=== PATIENT | male | born 1970 | race Caucasian/White ===

== ENCOUNTER 2017-10-16 23:34 | Emergency (ER) | payer BC ==
[~2017-10-16] VITALS: Ht 177.8 cm; Wt 74.8 kg
[2017-10-16 23:54] VITALS: BP 144/81
[2017-10-17] MEDS ORDERED: HYDROCODON-ACE1 EA15 ORAL (00:44)
[2017-10-17] MEDS ORDERED: BACTRIM DS TAB1 EAC1 ORAL (00:44)
[2017-10-17] MEDS ORDERED: IBUPROFEN600 MG ORAL (00:44)
--- NOTE | 2017-10-17 00:44 | Emergency Room Report ---
History of Present Illness General Chief Complaint: Skin Rash/Abscess Source: Patient Present Illness HPI Is a 47-year-old male with no past mental history. He presents with chief complaint of an abscess to his right buttock. Been there for about 3-4 days. No nausea no vomiting. No fever or chills. No drainage. He has similar symptom in the past but usually heal on its own. No other complaint. Allergies: Coded Allergies: No Known Allergies (Unverified , 10/17/17) Patient History Past Medical History: see triage record, old chart reviewed Past Surgical History: other Pertinent Family History: none Social History: Denies: smoking Immunizations: other Reviewed Nursing Documentation: PMH: Agreed; PSxH: Agreed Nursing Documentation-PMH Past Medical History: No Stated History Review of Systems Eye: Denies: eye pain, blurred vision ENT: Denies: ear pain, nose congestion, throat swelling Respiratory: Denies: cough, shortness of breath Cardiovascular: Denies: chest pain, palpitations Gastrointestinal: Denies: abdominal pain, diarrhea, nausea, vomiting Musculoskeletal: Denies: back pain, joint pain Skin: Denies: rash Neurological: Denies: headache, numbness Endocrine: Denies: increased thirst, increased urine Hematologic/Lymphatic: Denies: easy bruising All Other Systems: negative except mentioned in HPI Physical Exam Vital Signs Date Time Temp Pulse Resp B/P (MAP) Pulse Ox O2 Delivery O2 Flow Rate FiO2 10/16/17 23:41 97.8 89 16 144/81 98 Room Air 97.9 vitals normal Sp02 EP Interpretation: reviewed, normal General Appearance: well appearing, no apparent distress, alert Head: normocephalic, atraumatic Eyes: bilateral eye PERRL, bilateral eye EOMI ENT: hearing grossly normal, normal pharynx Neck: full range of motion, supple, no meningismus Respiratory: chest non-tender, lungs clear, normal breath sounds Cardiovascular #1: regular rate, rhythm, no murmur Gastrointestinal: normal bowel sounds, non tender, no mass, no organomegaly, no bruit, non-distended Rectal: other - Right buttock: There is an indurated area of 6 cm. This is right at the gluteal fold. No anal extension. Tender to palpation. There is erythema. Musculoskeletal: back normal, gait/station normal, normal range of motion Psychiatric: mood/affect normal Skin: warm/dry Procedures Incision and Drainage Incision and Drainage : Consent: Verbal Site: Buttock Blade Size: 11 I & D Procedure: betadine prep, sterile drapes applied, sterile dressing applied, gauze wick placed Wound Location: other - buttock Irrigated w/ Saline (ccs): 1000 Anesthesia: 1% Lidocaine Volume Anesthetic (ccs): 8 Patient Tolerated: Well Complications: None Progress Area cleaned with chlorhexidine. Local anesthetic 1% lidocaine without epinephrine. I made a 2 cm incision. Loculated area broken up. There was mom of pus expressed. Wound irrigated and packed. Dressing placed. Patient tolerated procedure without a problem. Medical Decision Making Diagnostic Impression: Primary Impression: Abscess of buttock, right ER Course Patient presents with abscess to the buttock. No evidence of pilonidal cyst. No evidence of deep infection. We'll discharge home with antibiotics. Last Vital Signs Date Time Temp Pulse Resp B/P (MAP) Pulse Ox O2 Delivery O2 Flow Rate FiO2 10/16/17 23:54 97.9 89 16 144/81 98 Room Air 97.9 Status: improved Disposition: HOME, SELF-CARE Condition: Stable Scripts Ibuprofen* (MOTRIN*) 600 Mg Tablet 600 MG ORAL THREE TIMES A DAY, #30 TAB 0 Refills Prov: JESSICA QUIROGA M.D. 10/17/17 Hydrocodone/Acetaminophen 5-325* (HYDROCODONE/ACETAMINOPHEN 5-325*) 1 Each Tablet 1 TAB ORAL Q6H PRN for For Pain, #10 TAB 0 Refills Prov: JESSICA QUIROGA M.D. 10/17/17 Trimethoprim/Sulfamethoxazole 160/800* (BACTRIM DS TABLET*) 1 Each Tablet 1 TAB ORAL Q12H, #14 TAB 0 Refills Prov: JESSICA QUIROGA M.D. 10/17/17 Referrals: NOT CHOSEN [facility]/,REFERRING (PCP) Patient Instructions: Abscess Additional Instructions: Follow-up with your DrCarmina in 2 days or go to an ER/urgent care for wound check. Return if symptom worsen. JESSICA QUIROGA M.D. Oct 17, 2017 00:44
[2017-10-17] MEDS ORDERED: Bactrim-DS 1 tab ORAL ONE (00:45)
[2017-10-17] MEDS ORDERED: Norco 5mg/325mg tab ORAL ONE (00:45)
[2017-10-17 00:58] VITALS: BP 144/81
== END 2017-10-17 00:59 | disposition home or self-care (01) ==
LOC: EMR 23:59
DX: L02.31 Cutaneous abscess of buttock (principal)
CPT/HCPCS: 10060; 99283